=== PATIENT | female | born 1955 | race Caucasian/White ===

== ENCOUNTER → 2019-07-18 | Day surgery (SDC) | payer BC ==
[~2019-07-18] MED LIST: Bacitracin OINTMENT* 0.5% 0.5 oz TUBE ONE; Buffered Lidocaine 1% SYRIN* 1 ML/SYRINGE INTRADERM ONE; Dexamethasone IV* 4 MG/ML 1 ML (4 MG) IV SLOW PU ONE; Dexamethasone IV* 4 MG/ML 1 ML (4 MG) ONE; DiMENhydriNATE IV* 50 MG/ML VIAL IV PUSH PRN; Famotidine IV* 10 MG/ML 2 ML (20 mg) IV ONE; Famotidine IV* 10 MG/ML 2 ML (20 mg) ONE; Lactated Ringers 1000 ML Bag* 1,000 ML IV SCH; Lidocaine 1% w EPI 1:100,000* MDV 20 ML VIAL ONE; Lidocaine 2% PF * 5 ML VIAL ONE; Lidocaine 4% TOPICAL* 50 ML TOP.SOLN ONE; Midazolam* 1 MG/ML 2 ML VIAL (2 MG) ONE; Naloxone* 0.4 MG/ML 1 ML VIAL IV PRN; Ondansetron INJ* 2 MG/ML VIAL ONE; Oxymetazoline 0.05% NASAL SPR* 15 ML BTL ONE; Phenylephrine 0.5% NASAL* BTL ONE; Propofol* 10 MG/ML 20 ML BTL ONE; fentaNYL* 50 MCG/ML 2 ML VIAL (100 MCG VIAL) IV PRN; fentaNYL* 50 MCG/ML 2 ML VIAL (100 MCG VIAL) ONE
[2019-07-18 16:58] VITALS: BP 163/82
--- NOTE | 2019-07-18 22:10 | OP ---
DATE OF OPERATION: 07/18/19 - [facility] DATE OF : 59 SURGEON: Krish Ross MD ANESTHESIA: General laryngeal mask airway anesthesia. PRE-OP DIAGNOSIS: Inferior turbinate hypertrophy. POST-OP DIAGNOSIS: Inferior turbinate hypertrophy. OPERATIVE PROCEDURE: Bilateral submucous resection of the inferior turbinates under general laryngeal mask airway anesthesia. COMPLICATIONS: None. DISPOSITION: Good. SPECIMEN: None. ESTIMATED BLOOD LOSS: Minimal. DESCRIPTION OF PROCEDURE: The patient was taken to the operating room and placed in the supine position on the operating table. General anesthesia maintained with laryngeal mask airway anesthesia. Nose was packed bilaterally with cottonoids impregnated with oxymetazoline and 4% lidocaine. She was draped for the surgery. The packs were removed and her inferior turbinates were injected with 1% lidocaine 1:100,000 epinephrine and incision was made in the anterior inferior turbinate with a 15-blade. A caudal elevator was used to elevate the mucosa off the bone. The turbinate debrider was placed into the submucosal pocket and the submucosa was debrided, this was done bilaterally. The turbinates were outfractured with the [place]. The nose was repacked, removed and hemostasis was ensured. The patient tolerated the procedure well, no complications, and transferred to the recovery room in stable condition. [id number]/[facility] #: [id number] [facility]ITALAdam
== END | disposition home or self-care (01) ==
LOC: OR 13:10
PROVIDERS: ATTEND Otolaryngology
DX: J34.3 Hypertrophy of nasal turbinates (principal); M19.90 Unspecified osteoarthritis, unspecified site; M35.3 Polymyalgia rheumatica; J30.2 Other seasonal allergic rhinitis
CPT/HCPCS: A9270-GY; J1100; J2250; J2405; J2704; J3010

== ENCOUNTER 2019-11-03 10:56 | Emergency (ER) | payer BC, OTHER ==
[2019-11-03 11:23] VITALS: BP 139/87
--- NOTE | 2019-11-03 11:32 | UC ---
Eye Complaint HPI - HPI Summary HPI Summary: 64-year-old woman comes in with a chief complaint of right eye irritation. Started while she was in the shower this morning. She wondered if she got some of her facial scrub in her eye. The irritation is gradually become less since that time. Now her eye feels normal again. - History of Current Complaint Chief Complaint: UCEye Stated Complaint: EYE PROBLEM Time Seen by Provider: 11/03/19 11:26 Pain Intensity: 0 - Allergies/Home Medications Allergies/Adverse Reactions: Allergies Allergy/AdvReac Type Severity Reaction Status Date / Time OXYCODONE AdvReac GI Upset Uncoded 07/18/19 14:16 PMH/Surg Hx/FS Hx/Imm Hx Previously Healthy: Yes - Surgical History Surgical History: None Surgery Procedure, Year, and Place: RT KNEE X2-ARTHROSCOPIC. LT THUMB X1- REPAIRED AFTER FX. RT EYELID REPAIR FROM A HAWK INJURY. RIGHT THR 2016 - Family History Known Family History: Positive: Non-Contributory - Social History Alcohol Use: Weekly Alcohol Amount: 6 BEERS/WEEK Substance Use Type: None Smoking Status (MU): Never Smoked Tobacco Review of Systems All Other Systems Reviewed And Are Negative: Yes Constitutional: Positive: Negative Skin: Positive: Negative Eyes: Positive: Drainage, Other - SEE HPI ENT: Positive: Negative Respiratory: Positive: Negative Cardiovascular: Positive: Negative Gastrointestinal: Positive: Negative Motor: Positive: Negative Neurovascular: Positive: Negative Musculoskeletal: Positive: Negative Neurological: Positive: Negative Psychological: Positive: Negative Is Patient Immunocompromised?: No Physical Exam Triage Information Reviewed: Yes Appearance: Well-Appearing, No Pain Distress, Well-Nourished Vital Signs: Initial Vital Signs Temp 97.3 F 11/03/19 11:19 Pulse 56 11/03/19 11:19 Resp 18 11/03/19 11:19 BP 139/87 11/03/19 11:19 Pulse Ox 99 11/03/19 11:19 Vital Signs Reviewed: Yes Eye Exam: Normal Eyes: Positive: Conjunctiva Clear, Other: - PERRLA EOMI. There is no scleral injection. Tears are clear. No eyelid swelling or crusting. I did not appreciate any foreign body on examination. With patient being back to normal I did not do a fluorescein stain exam. Neck: Positive: Supple Respiratory: Positive: No respiratory distress Musculoskeletal: Positive: Strength Intact, ROM Intact Neurological: Positive: Alert, Muscle Tone Normal Psychological: Positive: Age Appropriate Behavior Skin Exam: Normal Eye Complaint Course/Dx - Course Course Of Treatment: Patient reports no symptoms now here in clinic. I did not see any foreign body or evidence of eyelid swelling. Did prescribed tobramycin to be used if the irritation continues. If the patient does not continue to be asymptomatic she should follow up with ophthalmology. - Differential Dx/Diagnosis Provider Diagnosis: Irritation of right eye Discharge ED - Sign-Out/Discharge Documenting (check all that apply): Patient Departure All imaging exams completed and their final reports reviewed: No Studies - Discharge Plan Condition: Stable Disposition: HOME Prescriptions: Tobramycin 0.3% OPHTH.JANIS* 1 drop RIGHT EYE Q4H #1 btl Patient Education Materials: Eye Foreign Body (ED), Conjunctivitis (ED) Referrals: Emily Kapoor MD [Primary Care Provider] - [facility] [Provider Group] Additional Instructions: FOLLOW UP WITH OPHTHALMOLOGY IF NOT COMPLETELY IMPROVED. GET REEVALUATED SOONER IF NOT IMPROVED OR WORSE OR ANY QUESTIONS OR CONCERNS. - Billing Disposition and Condition Condition: STABLE Disposition: Home
== END 2019-11-03 11:51 | disposition home or self-care (01) ==
LOC: UCEAST 10:56
DX: H57.89 Other specified disorders of eye and adnexa (principal); Z88.5 Allergy status to narcotic agent
CPT/HCPCS: 99212; G0463

== ENCOUNTER 2020-01-09 07:27 | Emergency (ER) | payer BC ==
[2020-01-09 07:44] VITALS: BP 138/78
--- NOTE | 2020-01-09 08:38 | UC ---
Ear Complaint HPI - HPI Summary HPI Summary: PIECE OF HEARING AID GOT STUCK IN PATIENT'S RIGHT EAR LAST NIGHT. SHE DENIES ANY PAIN OR DRAINAGE. - History of Current Complaint Chief Complaint: UCEar Stated Complaint: FOREIGN BODY IN EAR Time Seen by Provider: 01/09/20 08:09 Hx Obtained From: Patient Onset/Duration: Sudden Onset, Lasting Hours, Still Present Severity Initially: Mild Severity Currently: Mild Pain Intensity: 0 Pain Scale Used: 0-10 Numeric Aggravating Factors: Nothing Alleviating Factors: Nothing Associated Signs/Symptoms: Negative: Discharge, Swelling @ - Allergies/Home Medications Allergies/Adverse Reactions: Allergies Allergy/AdvReac Type Severity Reaction Status Date / Time OXYCODONE AdvReac GI Upset Uncoded 01/09/20 07:44 Home Medications: Home Medications Multivitamin [Multivitamins] 1 cap PO DAILY 01/09/20 [History Confirmed 01/09/20 ] PMH/Surg Hx/FS Hx/Imm Hx - Additional Past Medical History Additional PMH: POLYMYALGIA RHEUMATICA - Surgical History Surgical History: None Surgery Procedure, Year, and Place: RT KNEE X2-ARTHROSCOPIC. LT THUMB X1- REPAIRED AFTER FX. RT EYELID REPAIR FROM A HAWK INJURY. RIGHT THR 2016. sinus surgery - Family History Known Family History: Positive: Non-Contributory - Social History Alcohol Use: Weekly Alcohol Amount: 6 BEERS/WEEK Substance Use Type: None Smoking Status (MU): Never Smoked Tobacco Review of Systems All Other Systems Reviewed And Are Negative: Yes Constitutional: Positive: Negative Skin: Positive: Negative ENT: Positive: Other - FB IN RIGHT EAR Respiratory: Positive: Negative Cardiovascular: Positive: Negative Gastrointestinal: Positive: Negative Physical Exam Triage Information Reviewed: Yes Appearance: Well-Appearing, No Pain Distress, Well-Nourished Vital Signs: Initial Vital Signs Temp 97.6 F 01/09/20 07:38 Pulse 60 01/09/20 07:38 Resp 16 01/09/20 07:38 BP 138/78 01/09/20 07:38 Pulse Ox 97 01/09/20 07:38 Vital Signs Reviewed: Yes Eyes: Positive: Conjunctiva Clear ENT: Positive: Hearing grossly normal, TMs normal, Other - HEARING AID PIECE IN RIGHT EAC Neck: Positive: Supple, Nontender Respiratory: Positive: No respiratory distress, No accessory muscle use Cardiovascular: Positive: Pulses Normal Abdomen Description: Positive: Soft Musculoskeletal: Positive: No Edema Neurological: Positive: Alert Psychological: Positive: Age Appropriate Behavior Skin: Negative: Rashes Ear Complaint Course/Dx - Course Course Of Treatment: HEARING AID PIECE REMOVED SUCCESSFULLY IN ENTIRETY BY Estevan USING ALLIGATOR FORCEPS. NO TRAUMA TO THE EAR CANAL OBSERVED. - Differential Dx/Diagnosis Provider Diagnosis: Foreign body in right auditory canal Discharge ED - Sign-Out/Discharge Documenting (check all that apply): Patient Departure All imaging exams completed and their final reports reviewed: No Studies - Discharge Plan Condition: Stable Disposition: HOME Patient Education Materials: Ear Foreign Body (ED) Referrals: Emily Kapoor MD [Primary Care Provider] - If Needed Additional Instructions: THE PIECE OF HEARING AID WAS REMOVED FROM YOUR RIGHT EAR CANAL WITHOUT ANY DIFFICULTY. SEEK FOLLOW-UP IF YOU DEVELOP PAIN, DRAINAGE OR ANY OTHER CONCERNING SYMPTOMS. - Billing Disposition and Condition Condition: STABLE Disposition: Home
== END 2020-01-09 08:27 | disposition home or self-care (01) ==
LOC: UCEAST 07:27
DX: T16.1XXA Foreign body in right ear, initial encounter (principal); X58.XXXA Exposure to other specified factors, initial encounter; Y92.9 Unspecified place or not applicable; Z88.5 Allergy status to narcotic agent
CPT/HCPCS: 69200; 99211; G0463